=== PATIENT | male | born 1990 | race American Indian/Alaskan Native ===

== ENCOUNTER 2021-05-25 18:02 | Emergency (ER) | payer SELFPAY ==
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
[2021-05-25 20:44] VITALS: BP 107/65
== END 2021-05-25 20:44 | disposition home or self-care (01) ==
LOC: ED 18:02
DX: K62.5 Hemorrhage of anus and rectum (principal); F17.200 Nicotine dependence, unspecified, uncomplicated; Z90.49 Acquired absence of other specified parts of digestive tract; Z79.899 Other long term (current) drug therapy
CPT/HCPCS: 82271; 99283